=== PATIENT | male | born 1970 | race Caucasian/White ===

== ENCOUNTER 2017-01-23 15:54 | Emergency (ER) | payer OTHER ==
[2017-01-23 17:50] LABS: BASOPHIL 0.8 % (0-2); EOSINOPHIL 1.8 % (0-5); HCT 44.7 % (42.0-52.0); HGB 15.6 g/dl (13.2-18.0); LYMPHOCYTE 23.7 % (15-48); MCH 30.1 pg (25.0-31.0); MCHC 34.9 g/dL (32.0-36.0); MCV 86.1 fL (78.0-100.0); MONOCYTE 9.8 % (0-12); NEUTROPHIL 63.9 % (41-80); PLT 217 K/uL (150-400); RBC 5.19 M/uL (4.70-6.00); RDW 13.1 % (11.5-14.0); WBC 9.1 K/uL (4.0-10.5)
== END 2017-01-23 21:00 | disposition home or self-care (01) ==
LOC: FER 15:54
PROVIDERS: Nurse Practitioner
DX: L02.416 Cutaneous abscess of left lower limb (principal); F17.210 Nicotine dependence, cigarettes, uncomplicated; Z88.5 Allergy status to narcotic agent
CPT/HCPCS: 36415; 80048; 83605; 85025; 86403; 87070; 87077; 87186; 87205; J1170; J2405; J2543; J3370

== ENCOUNTER 2017-01-26 14:30 | Day surgery (SDCO) | payer OTHER ==
[2017-01-26 15:13] LABS: HCT 47.1 % (42.0-52.0); HGB 16.1 g/dl (13.2-18.0); MCH 29.7 pg (25.0-31.0); MCHC 34.2 g/dL (32.0-36.0); MCV 86.7 fL (78.0-100.0); MPV 9.7 fL (6.0-9.5); RBC 5.43 M/uL (4.70-6.00); WBC 8.3 K/uL (4.0-10.5)
[2017-01-26 15:48] LABS: POTASSIUM 4.5 mmol/L (3.5-5.1)
== END 2017-01-27 15:12 | disposition home or self-care (01) ==
LOC: FAS 14:30 → FMS 16:35
PROVIDERS: ADMIT Surgery
DX: L02.416 Cutaneous abscess of left lower limb (principal); F17.210 Nicotine dependence, cigarettes, uncomplicated; Z88.5 Allergy status to narcotic agent; Z90.49 Acquired absence of other specified parts of digestive tract; Z79.2 Long term (current) use of antibiotics; Z98.890 Other specified postprocedural states
CPT/HCPCS: 36415; 80048; 94010; G0378; J1170; J1885; J2704; J3010; J3370